=== PATIENT | female | born 1995 | race African-American/Black ===

== ENCOUNTER 2017-12-23 00:31 | Emergency (ER) | payer MEDICAID ==
[~2017-12-23] VITALS: Ht 167.6 cm; Wt 67.0 kg
[2017-12-23] MEDS ORDERED: KETOROLAC 30MG/ML VIAL IM ONE (02:30)
[2017-12-23] MEDS ORDERED: ACETAMINOPHEN 325MG TABLET PO ONE (02:30)
[2017-12-23 04:53] VITALS: BP 107/65
== END 2017-12-23 04:55 | disposition home or self-care (01) ==
LOC: ER 00:31
DX: K08.89 Other specified disorders of teeth and supporting structures (principal); F12.10 Cannabis abuse, uncomplicated; Z90.49 Acquired absence of other specified parts of digestive tract
CPT/HCPCS: 81025; 96372; 99283; J1885